=== PATIENT | male | born 1980 | race Caucasian/White ===

== ENCOUNTER 2020-08-09 16:15 | Emergency (ER) | payer OTHER, SELFPAY ==
[2020-08-09 17:01] VITALS: BP 115/64; PULSE 67; RESP 16; TEMP 37.2; O2SAT 96; BMI 31.3
--- NOTE | 2020-08-09 17:15 | ED_ITS ---
HPI - Dental/Oral General Chief complaint: Dental/Oral Stated complaint: swollen face Source: patient Mode of arrival: ambulatory Limitations: no limitations History of Present Illness HPI Narrative: 39-year-old male with no significant past medical history presents with 3 days of left lower jaw pain and swelling from a dental abscess. He does not report any fevers or chills, and states that he has not been able to see a dentist because of COVID-19. MD Complaint: tooth pain Teeth map: 1. Onset (ago): day(s) (3) Duration: constant Severity: moderate Severity scale (1-10): 8 Relieving factors: nothing Exacerbating factors: chewing, cold, heat and drinking fluids Context: history of dental caries and poor dental care Associated symptoms: gum swelling Treatment prior to arrival: oral analgesic Related Data Previous Rx's Medication Instructions Recorded amoxicillin-pot clavulanate 1 tab PO Q12H 10 Days #20 tab 08/09/20 [Augmentin] ibuprofen 600 mg PO TID PRN #30 tab 08/09/20 Allergies Allergy/AdvReac Type Severity Reaction Status Date / Time No Known Allergies Allergy Unverified 05/03/20 18:19 Review of Systems Review of Systems: Constitutional: No Fever, No Chills ENT/Mouth: No swallowing difficulty, no change in voice, positive dental pain, positive jaw pain, positive facial swelling Eyes: No Eye Pain, No Swelling Cardiovascular: No Chest Pain, No SOB Respiratory: No Cough, No Sputum, No Wheezing, No Smoke Exposure, No Dyspnea Gastrointestinal: No Nausea, No Vomiting, No Diarrhea Genitourinary: No Dysuria Musculoskeletal: No Myalgias Skin: No rash Neuro: No Weakness, No Numbness, No Headache Yes all other systems are reviewed and are negative PMFSH Past Medical History Attestation statement: The following information was validated with the patient. Medical History No known health problems Social History Social History Alcohol intake: never Smoked in Last 30 Days: No Use of substances other than those prescribed or required for medical reasons: No Advance Directives: No Advance Directives Information Provided: Yes Physical Exam Vital Signs: Vital Signs: Last Vital Signs Temp 98.9 F 08/09/20 17:01 Pulse 67 08/09/20 17:01 Resp 16 08/09/20 17:01 BP 115/64 08/09/20 17:01 Pulse Ox 96 08/09/20 17:01 Body Mass Index 31.3 Appearance: Alert. Oriented X3. Moderate distress. Eyes: Pupils equal, round and reactive to light. ENT: Pharynx normal. Swelling noted at tooth 18 through 19, visible pus pocket noted, dental caries Neck: Normal inspection. Neck supple. CVS: Normal heart rate and rhythm. Pulses normal. Respiratory: No respiratory distress. Breath sounds normal. Abdomen: Soft and nontender. Skin: Skin warm and dry. Normal skin color. Normal skin turgor. Extremities: No lower extremity edema. Neuro: No motor deficit. No sensory deficit. Course Course Course Narrative: 39-year-old male presents with dental abscess and caries. Abscess drained with an 18 gauge needle approximately 20 mL of purulent aspirate obtained. Plan of care is to treat with Augmentin, Tdap was updated 1 year ago. Patient verbalized understanding of and agrees to plan of care to discharge home. MDM - Dental/Oral Differential Diagnosis Differential diagnosis: Likely gingival abscess, dental caries, toothache and dental abscess Medical Records Attestation: I reviewed the patient's medical records. Discharge Plan Discharge Clinical Impression: Dental abscess, Dental caries Patient Disposition: Home, Self-Care Instructions: Dental Abscess (ED) Additional Instructions: Please follow-up with a dentist. Take Augmentin as directed and complete the entire course. This is an antibiotic. The prescribed Motrin 600 mg for pain management. You may also consider purc hasing Ambesol or Orajel [id number] for topical relief. Thank you for choosing this emergency department for evaluation. Please follow-up with primary care physician as needed. Return to the emergency department for any new, concerning, or worsening symptoms. Prescriptions: New amoxicillin-pot clavulanate [Augmentin] 875-125 mg tablet 1 tab PO Q12H 10 Days Qty: 20 RF: 0 ibuprofen 600 mg tablet 600 mg PO TID PRN (Reason: pain) Qty: 30 RF: 0 Interventions: ED Discharge Assessment Last Done: 08/09/20 17:44 Discharge Date/Time: 08/09/20 17:45
[2020-08-09] MEDS: Amoxicillin/Potassium Clav 875 MG TABLET PO (17:42)
== END 2020-08-09 17:45 | disposition home or self-care (01) ==
PROVIDERS: Emergency Provider Emergency Medicine; PCP Internal Medicine Endocrinology, Diabetes & Metabolism
DX: K04.7 Periapical abscess without sinus (principal); K02.9 Dental caries, unspecified
CPT/HCPCS: 41800; 99283; 99284

== ENCOUNTER 2020-08-20 09:41 | Outpatient (REF) | payer OTHER, SELFPAY | END 2020-08-20 09:42 | disposition home or self-care (01) | LOC: HO.LAB 09:41 | PROVIDERS: Visit Provider Internal Medicine | DX: Z20.822 Contact with and (suspected) exposure to COVID-19 (principal) | CPT/HCPCS: 36415; C9803; U0003 ==

== ENCOUNTER 2024-02-08 08:04 | Outpatient (AMB) | payer OTHER, SELFPAY ==
[2024-02-08 08:16] VITALS: BP 118/70; PULSE 62; TEMP 36.8; O2SAT 98; BMI 27.4
--- NOTE | 2024-02-08 08:16 | AM.OFFWIN_ITS ---
Intake Vital Signs 02/08/24 08:16 Height 5 ft 7 in Weight 175 lb BMI 27.4 BP 118/70 Blood Pressure Location Rt brachial Position Sitting Pulse 62 Pulse Source Pulse Oximeter Temp 98.3 F Temp Source Oral Pulse Oximetry (%) 98 Intake Visit Reasons: [employer] T-spot/Work clearance Intake Note: pt is here for t spot, and work letter saying he is healthy to work Patient Tobacco Use Status: Current everyday Tobacco user Allergies No Known Allergies Allergy (Unverified 02/08/24 08:16) Do you need a note to return to daycare/school/sports/work: Yes HPI HPI Comments History of Present Illness Details Patient presents to the walk-in today requesting T spot for new job Denies past medical history Denies allergies Denies taking medications Patient with no complaints at this time [facility] Medical History No known health problems Social History Alcohol intake: never Patient Tobacco Use Status: Current everyday Tobacco user Review of Systems Const All systems reviewed & are unremarkable except as noted in HPI and below Physical Exam Vital Signs: Last Vital Signs Temp 98.3 F 02/08/24 08:16 Pulse 62 02/08/24 08:16 BP 118/70 02/08/24 08:16 Pulse Ox 98 02/08/24 08:16 BMI result Body Mass Index 27.4 General: awake, alert, oriented. Answers questions appropriately. Fully engaged in examination. Skin: warm, dry, intact HEENT: Normocephalic. Hearing intact. Cardiac: External chest normal in appearance. RRR Respiratory: No cough, audible wheezing or stridor. Abdomen: without gross distension. MS: No obvious swelling or deformities. Neurological: Oriented to person, place, time and situation. Thought process intact. No gait abnormalities appreciated. Psychiatric: Appropriate mood and affect. Good judgment and insight. Assessment & Plan Assessment & Plan (1) Encounter for testing for latent tuberculosis: Code(s): Z11.7 - Encounter for testing for latent tuberculosis infection Plan T-spot ordered Vital signs stable Visual acuity as above Work note provided Follow up with PCP or return here as needed. Orders: Orders T Spot TB Today Z11.7 - Encounter for testing for latent tuberculosis infection Medications: Discontinued amoxicillin-pot clavulanate 875-125 mg (Augmentin) Discontinued Reason: Patient Completed Course 1 tab PO Q12H 10 days 20 tabs 0RF ibuprofen Discontinued Reason: Patient Completed Course 600 mg PO TID PRN 30 tabs 0RF pain Coding Level of Care Code New Pt Level 4 (95882) Diagnoses Encounter for testing for latent tuberculosis Z11.7 CPT Codes Vision Screening - Vision Screenin - Vision Screening ([id number]) Vision Screening Right Eye: 20/10 Left Eye: 20/10 Bilateral: 20/10 Overall Vision Screening Results: Pass Comments: uncorrected 85174 - Vision Screening
== END 2024-02-08 09:33 | disposition home or self-care (01) ==
PROVIDERS: Visit Provider Registered Nurse Emergency
DX: Z02.1 Encounter for pre-employment examination (principal); Z11.7 Encounter for testing for latent tuberculosis infection; Z01.00 Encounter for examination of eyes and vision without abnormal findings
CPT/HCPCS: 99173; 99203

== ENCOUNTER 2024-02-08 09:19 | Outpatient (REF) | payer OTHER, SELFPAY ==
[2024-02-10 23:18] LABS: TS Negative Control Passed; TS Panel A 0; TS Panel B 0; TS Positive Control Passed; TSpotTB Negative (Negative)
== END 2024-02-08 09:20 | disposition home or self-care (01) ==
LOC: HO.HMGCLDS 09:19
PROVIDERS: Visit Provider Registered Nurse Emergency
DX: Z11.7 Encounter for testing for latent tuberculosis infection (principal)
CPT/HCPCS: 36415; 86481